=== PATIENT | male | born 1990 | race Caucasian/White ===

== ENCOUNTER 2017-01-27 09:18 | Emergency (ER) | payer OTHER ==
[~2017-01-27] VITALS: Wt 115.1 kg
[~2017-01-27 09:18] MED LIST: CEPH-443 PO; HYDR-1666 PO; SULF1TAB7 PO
[2017-01-27] MEDS ORDERED: IBUP800T25 PO (10:39)
--- NOTE | 2017-01-27 10:39 | ERD ---
ER Documentation Chief Complaint Date/Time DATE: 01/27/17 TIME: 10:36 Chief Complaint GEN WEAKNESS HAVING DIARRHEA AND VOMITING AND COUGH CONGESTION FOR 6 DAYS HPI 27-year-old male who presents to the emergency room for multiple complaints including non-productive cough, vomiting, diarrhea, generalized weakness that is on and off for about 4 days. Vomited (nonbilious, nonbloody) once yesterday. Diarrhea twice for the past 24 hours. Stated that he needs some rest from work. He also stated if he could get a work note. Denies headache, loss of consciousness, dizziness, blurry vision, changes in vision, photophobia, facial pain, ear pain, throat pain, difficulty swallowing, neck pain, shoulder pain, chest pain, cough, hemoptysis, abdominal pain, back pain, loss of appetite, hematochezia, constipation, urinary symptoms, bladder and bowel incontinences, extremity weakness, extremity tenderness, numbness or tingling sensation, difficulty walking, recent travel, recent exposure to illness, recent antibiotic use in the last 3 months, fever, chills. Allergy: No known drug allergies. PMH: Denies. Medications: Motrin. Surgery: Denies. Family history: Denies family history of stroke, cardiac before the age of 50. Primary Social History: Works at the [employer]. Occasional drinks alcoholic beverages. Denies smoking, use of illegal drugs. ROS All systems reviewed and are negative except as per history of present illness. Medications Home Meds Active Scripts Electrolyte,Oral (Pedialyte) 1,000 Ml Solution, 100 ML PO Q6 Y for prevent dehydration, #1 ML Prov:AKI BLOUNT 01/27/17 Ondansetron Hcl* (Zofran*) 4 Mg Tablet, 4 MG PO Q8H Y for NAUSEA AND/OR VOMITING , #30 TAB Prov:FARHADILAAKI RAMIREZ 01/27/17 Acetaminophen* (Tylenol*) 325 Mg Tablet, 2 TAB PO Q6 Y for PAIN AND OR ELEVATED TEMP, #20 TAB Prov:AKI BLOUNT 01/27/17 Ibuprofen* (Motrin*) 800 Mg Tab, 800 MG PO Q6H Y for PAIN AND OR ELEVATED TEMP, #30 TAB Prov:AKI BLOUNT 01/27/17 Reported Medications Cephalexin* (Keflex*) 500 Mg Capsule, 500 MG PO QID 06/04/11 Sulfamethoxazole-Trimethoprim* (Bactrim* DS) 1 Tab Tab, 1 TAB PO BID 06/04/11 Hydrocodone Bit/Acetaminophen (Vicodin 5/500 Tablet) 1 Tab Tablet, 1 TAB PO Q8 06/04/11 Allergies Allergies: Coded Allergies: No Known Drug Allergies (Verified Allergy, Mild, 06/07/11) PMhx/Soc History of Surgery: No (NO MEDICAL CONDITIONS NOTED. ) Anesthesia Reaction: No Hx Neurological Disorder: No Hx Respiratory Disorders: No Hx Cardiac Disorders: No Hx Psychiatric Problems: No Hx Miscellaneous Medical Probl: No Hx Alcohol Use: No Hx Substance Use: No Hx Tobacco Use: No Smoking Status: Never smoker Physical Exam Vitals Vital Signs Date Time Temp Pulse Resp B/P Pulse Ox O2 Delivery O2 Flow Rate FiO2 01/27/17 09:24 98.4 79 20 151/89 100 Physical Exam CONSTITUTIONAL: Well-appearing; well-nourished. HEAD: Normocephalic; atraumatic. EYES: Conjunctiva clear, sclera non-icteric, EOM intact. PERRL. Extraocular movement of the eyes is intact. No pain on eye movement. No signs of dehydration. Ears: Hearing intact. EACs clear, TMs non-bulging, non-inflamed, translucent & mobile, ossicles normal appearance, No obstructions, no erythema, no discharges Nose: No obstructions. No polyps. No external lesions. Mucosa non-inflamed. No external lesions, septum and turbinates normal. No rhinorrhea. No discharges. Frontal sinus is non-tender to palpation. Maxillary sinus is non-tender to palpation. MOUTH: Moist mucous membranes, no lesion, no obstructions, no vesicles, no thrush, patent airway Throat: Uvula in midline. Right tonsil is +1 with no erythema, no exudate. Left tonsil is +1 with no erythema, no exudate. Tolerating secretions well. Good gag reflex. Patent airway. Neck: Supple, without lesions, bruits, or adenopathy. No mass. Thyroid non- enlarged and non-tender to palpation. Good and full range of motion of neck and spine without pain/discomfort. CHEST: Symmetrical chest. Respirations even and not labored. No retractions noted. CARDIOVASCULAR: Normal S1, S2. RRR. No murmurs, gallops. RESPIRATORY: Normal chest excursion with respiration; breath sounds clear and equal bilaterally; no wheezes, rhonchi, or rales. Breathing even and unlabored. Speaking in clear, full, and complete sentences w/ ease. ABDOMEN: Normal bowel sounds normal. Soft, round, non-distended, non-guarding, no tenderness, no rebound, no organomegaly, no masses, no pulsating abdominal mass. No hernia. No peritoneal signs. : No CVA tenderness. BACK: Symmetrical shoulder. Spine is midline without deformity, tenderness. No evidence of trauma or deformity. PELVIS: Stable pelvis. No evidence of trauma or deformity. MUSCULOSKELETAL: Normal gait and station. No misalignment, asymmetry, crepitation, defects, tenderness, masses, effusions, decreased range of motion, instability, atrophy or abnormal strength or tone in the head, neck, spine, ribs , pelvis or extremities. No calf tenderness. NEUROVASCULAR: Distal pulses are present. Pedal pulse are present, equal, and normal. Capillary refills are < 2 seconds. NEUROLOGIC: Alert and oriented x4. Speaks full and clear sentences. Cranial Nerves II-XII normal. Sensation to pain, touch, and proprioception normal. Grossly unremarkable. No neurologic deficits. Romberg test is negative. PSYCHOLOGICAL: The patients mood and manner are appropriate. No hallucinations , delusions. Not SI. Not HI. Has the capacity to decide for himself. SKIN: Normal for age and ethnicity; warm; dry; good turgor; no apparent lesions or exudates. No rashes, hives, discoloration. Intact. No signs of dehydration. Procedures/MDM Examination: Please see physical examination. Disease process, medical treatment was explained to the patient and family member. They verbalized understanding and agreed with the medical treatment, and follow-up care. Re-evaluation: Patient is alert and oriented 4. Speaks full and clear sentences. Denies headache, dizziness, neck pain, chest pain, back pain, abdominal pain. No nausea and vomiting during his stay here at the emergency department. No right upper abdominal tenderness on palpation. No right lower abdominal tenderness on palpation. No CVA tenderness. Negative on Germán sign. Negative Rovsing's sign. No peritoneal signs. Able to jump 5 times without abdominal pain. Ambulatory without difficulty and pain to abdomen. No unilateral deficits. No neurological deficits. Romberg test is negative. Consultation: None. Differential diagnosis: Appendicitis versus pyelonephritis versus gastroenteritis Medical decision making: Tylenol. Motrin. Zofran. Patient's request for me to prescribe him with Pedialyte. Medications prescribed are the followin-year-old male who presents to the emergency room for multiple complaints including non-productive cough, vomiting , diarrhea, generalized weakness that is on and off for about 4 days. Vomited ( nonbilious, nonbloody) once yesterday. Diarrhea twice for the past 24 hours. Stated that he needs some rest from work. He also stated if he could get a work note. Patient's complaint, patient's history about his complaint, my physical findings, my reevaluation I consistent my final diagnosis of gastroenteritis viral in origin. Patient and family member are made aware of the side effects and adverse reactions of the medications prescribed. Instructed on when to seek emergent and medical attention in case allergic/anaphylactic reactions or severe side effects and or adverse reactions to medications. Patient and family member verbalized understanding. Patient instructed Instructed to follow-up with his PCP in 24-48 hours. Patient stated that he will see his own primary care provider in the next 24-48 hours. Instructed to Call 911 for chest pain, shortness of breath. Advised to come back here in ED as soon as possible for severity of symptoms which includes but not limited to: any new symptoms; shortness of breath/difficulty of breathing; cardiovascular changes; severe gastrointestinal symptoms; signs and symptoms of bleeding and or infection; signs of compartment syndrome/neurovascular changes; neurological changes/deficits. Patient and family member verbalized understanding. Upon discharge, patient is alert and oriented x 4, speaks full and clear sentences, denies pain, has no neurological deficits, has no neurovascular deficits, difficulty of breathing. Breathing even and unlabored. Lung sounds are clear to auscultation. Not in distress. Appears comfortable. Ambulatory with steady gait. Appears satisfied with care provided here in ED. Departure Diagnosis: Primary Impression: Viral gastroenteritis Condition: Good Additional Instructions: Patient instructed Instructed to follow-up with his PCP in 24-48 hours. Patient stated that he will see his own primary care provider in the next 24-48 hours. Instructed to Call 911 for chest pain, shortness of breath. Advised to come back here in ED as soon as possible for severity of symptoms which includes but not limited to: any new symptoms; shortness of breath/difficulty of breathing; cardiovascular changes; severe gastrointestinal symptoms; signs and symptoms of bleeding and or infection; signs of compartment syndrome/neurovascular changes; neurological changes/deficits. Patient and family member verbalized understanding. AKI BLOUNT Jan 27, 2017 10:39
[2017-01-27] MEDS ORDERED: ACET325T33 PO (10:40)
[2017-01-27] MEDS ORDERED: ONDA4TAB8 PO (10:40)
[2017-01-27] MEDS ORDERED: ELEC100080 PO (10:42)
== END 2017-01-27 10:55 | disposition home or self-care (01) ==
LOC: FTE 09:18
DX: A08.4 Viral intestinal infection, unspecified (principal); R11.10 Vomiting, unspecified
CPT/HCPCS: 99283

== ENCOUNTER 2019-01-03 15:11 | Emergency (ER) | payer BC, MEDICAID ==
[~2019-01-03] VITALS: Wt 117.3 kg
[~2019-01-03 15:11] MED LIST changes: +ACET325T33 PO; +ELEC100080 PO; +IBUP800T48 PO; +ONDA4TAB8 PO
[2019-01-03 15:29] VITALS: BP 139/84; PULSE 92; RESP 18
[2019-01-03] MEDS ORDERED: OSEL75CA23 PO (17:08)
[2019-01-03] MEDS ORDERED: IBUP-1542 PO (17:08)
[2019-01-03] MEDS ORDERED: D-ME473S2 PO (17:08)
--- NOTE | 2019-01-03 17:32 | ERD ---
ER Documentation Chief Complaint Chief Complaint flu-like sx: body aches, cough, dizzy, fever x2d. no meds taken. HPI 29-year-old male presents with body aches, fatigue, cough, sore throat, and subjective fevers for the past 2 days. Not taking any medications. Denies any wheezing, chest pain, neck stiffness, photophobia, shortness of breath, stridor, nausea, vomiting, diarrhea. denies past medical history. Denies allergies. Denies medications. Denies surgeries. Denies alcohol, tobacco, drug use. Up to date on vaccines. ROS All systems reviewed and are negative except as per history of present illness. Medications Home Meds Active Scripts Dextromethorphan Hb-Promethazine Hcl* (Promethazine DM* Syrup) 473 Ml Syrup, 5 ML PO Q6 PRN for COUGH, #4 OZ Prov:JOCELYNN WILSON 01/03/19 Ibuprofen* (Motrin*) 600 Mg Tab, 600 MG PO Q6H PRN for PAIN AND OR ELEVATED TEMP, #30 TAB Prov:JOCELYNN WILSON 01/03/19 Oseltamivir Phosphate* (Tamiflu*) 75 Mg Capsule, 75 MG PO BID for flu for 5 Days, CAP Prov:JOCELYNN WILSON 01/03/19 Electrolyte,Oral (Pedialyte) 1,000 Ml Solution, 100 ML PO Q6 PRN for prevent dehydration, #1 ML Prov:AKI BLOUNT F 01/27/17 Ondansetron Hcl* (Zofran*) 4 Mg Tablet, 4 MG PO Q8H PRN for NAUSEA AND/OR VOMITING, #30 TAB Prov:AKI BLOUNT F 01/27/17 Acetaminophen* (Tylenol*) 325 Mg Tablet, 2 TAB PO Q6 PRN for PAIN AND OR ELEVATED TEMP, #20 TAB Prov:AKI BLOUNT F 01/27/17 Ibuprofen* (Motrin*) 800 Mg Tab, 800 MG PO Q6H PRN for PAIN AND OR ELEVATED TEMP, #30 TAB Prov:MIKE BLOUNTAR F 01/27/17 Reported Medications Cephalexin* (Keflex*) 500 Mg Capsule, 500 MG PO QID 06/04/11 Sulfamethoxazole-Trimethoprim* (Bactrim* DS) 1 Tab Tab, 1 TAB PO BID 06/04/11 Hydrocodone Bit/Acetaminophen (Vicodin 5/500 Tablet) 1 Tab Tablet, 1 TAB PO Q8 06/04/11 Allergies Allergies: Coded Allergies: No Known Drug Allergies (Verified Allergy, Mild, 06/07/11) PMhx/Soc History of Surgery: No (NO MEDICAL CONDITIONS NOTED. ) Anesthesia Reaction: No Hx Neurological Disorder: No Hx Respiratory Disorders: No Hx Cardiac Disorders: No Hx Psychiatric Problems: No Hx Miscellaneous Medical Probl: No Hx Alcohol Use: No Hx Substance Use: No Hx Tobacco Use: No Smoking Status: Never smoker FmHx Family History: No diabetes, No coronary disease, No other Physical Exam Vitals Vital Signs Date Temp Pulse Resp B/P (MAP) Pulse Ox O2 O2 Flow FiO2 Time Delivery Rate 01/03/19 99.9 92 18 139/84 99 15:29 (102) Physical Exam Const: No acute distress Head: Atraumatic Eyes: Normal Conjunctiva ENT: Normal External Ears, Nose and Mouth. TMs are pearly hernandez and nonbulging bilaterally. Canals are patent without e discharge. Tonsils are nonerythematous or dense bilaterally without exudates. Uvula is midline with no masses noted. Neck: Full range of motion. No meningismus. Resp: Clear to auscultation bilaterally Cardio: Regular rate and rhythm, no murmurs Abd: Soft, non tender, non distended. Normal bowel sounds Skin: No petechiae or rashes Back: No midline or flank tenderness Ext: No cyanosis, or edema Neur: Awake and alert Psych: Normal Mood and Affect Procedures/MDM 29-year-old male presents with body aches, fatigue, cough, sore throat, and subjective fevers for the past 2 days. Not taking any medications. Denies any wheezing, chest pain, neck stiffness, photophobia, shortness of breath, stridor, nausea, vomiting, diarrhea. denies past medical history. Denies allergies. Denies medications. Denies surgeries. Denies alcohol, tobacco, drug use. Up to date on vaccines. I have low suspicion for strep throat based on history and exam findings, as well as patient not meeting centor criteria for rapid strep testing. I have low suspicion for bacterial sinusitis, pneumonia, tuberculosis, meningitis, pneumothorax, PE, aspirated foreign body, respiratory distress, acute heart failure or other life threatening etiology based on patient history and exam findings. Most likely etiology is influenza and no further tests are necessary. Patient preferred to be treated treated empirically rather than have to wait for results of influenza test. Therefore given rx for Tamiflu. Patient advised to rest and stay well hydrated. Patient discharged with strict ER precautions. Patient advised to follow up with PMD. All questions answered at discharge. Departure Diagnosis: Primary Impression: Influenza Condition: Stable Patient Instructions: Influenza (Adult) Referrals: [facility] YOU HAVE RECEIVED A MEDICAL SCREENING EXAM AND THE RESULTS INDICATE THAT YOU DO NOT HAVE A CONDITION THAT REQUIRES URGENT TREATMENT IN THE EMERGENCY DEPARTMENT. FURTHER EVALUATION AND TREATMENT OF YOUR CONDITION CAN WAIT UNTIL YOU ARE SEEN IN YOUR DOCTORS OFFICE WITHIN THE NEXT 1-2 DAYS. IT IS YOUR RESPONSIBILITY TO MAKE AN APPOINTMENT FOR FOLOW-UP CARE. IF YOU HAVE A PRIMARY DOCTOR --you should call your primary doctor and schedule an appointment IF YOU DO NOT HAVE A PRIMARY DOCTOR YOU CAN CALL OUR PHYSICIAN REFERRAL HOTLINE AT IF YOU CAN NOT AFFORD TO SEE A PHYSICIAN YOU CAN CHOSE FROM THE FOLLOWING [facility] CLINICS [facility] [address] [facility]. [facility] [address] [facility] [facility] [address] [facility] [facility] [address] [facility]. [facility] [address] [facility]. [facility]. [address] Additional Instructions: FOLLOW UP WITH YOUR PRIMARY CARE PHYSICIAN TOMORROW.Return to this facility if you are not improving as expected. JOCELYNN WILSON Jan 03, 2019 17:32
== END 2019-01-03 17:32 | disposition home or self-care (01) ==
LOC: FTE 15:11
DX: J11.1 Influenza due to unidentified influenza virus with other respiratory manifestations (principal)
CPT/HCPCS: 99283